=== PATIENT | male | born 1970 | race Caucasian/White ===

== ENCOUNTER 2017-07-17 15:04 | Emergency (ER) | payer MEDICAID ==
[~2017-07-17] VITALS: Ht 165.1 cm; Wt 59.9 kg
[~2017-07-17 15:04] MED LIST: NAPR-56 PO; OTC MOTRIN; PENI500T2 PO
[2017-07-17] MEDS ORDERED: ibuprofen 200mg tablet PO ONE (15:30)
[2017-07-17] MEDS ORDERED: pseudoephedrine 30mg tablet PO ONE (15:30)
[2017-07-17] MEDS ORDERED: benzonatate 100mg capsule PO ONE (15:30)
[2017-07-17] MEDS ORDERED: CefTRIAXone 2gm/NS 100ml IVPB 100 ML IV ONE (16:25)
[2017-07-17] MEDS ORDERED: azithromycin/NS 500mg/250ml 250 ML IV ONE (16:25)
[2017-07-17] MEDS ORDERED: normal saline 1000ML IV soln IVB ONE (16:30)
[2017-07-17 16:53] LABS: BASOPHILS % (AUTO) 0.2 % (0-1); EOSINOPHILS # (AUTO) 0.5 X10'3 (0-0.9); EOSINOPHILS % (AUTO) 3.2 % (0-6); HEMATOCRIT 34.6 % (42.0-52.0); LYMPHOCYTES # (AUTO) 2.2 X10'3 (1.1-4.8); LYMPHOCYTES % (AUTO) 14.2 % (21-51); MEAN CORPUSCULAR HEMOGLOBIN 32.8 PG (27.0-31.0); MEAN CORPUSCULAR HGB CONC 34.6 % (33.0-36.5); MEAN CORPUSCULAR VOLUME 94.8 FL (78-98); MEAN PLATELET VOLUME 7.7 FL (7.4-10.4); MONOCYTES # (AUTO) 0.8 X10'3 (0-0.9); NEUTROPHILS # (AUTO) 11.7 X10'3 (1.8-7.7); NEUTROPHILS % (AUTO) 77.4 % (42-75); PLATELET COUNT 375 X10'3 (140-440); RED BLOOD COUNT 3.65 X10'6 (4.70-6.10); RED CELL DISTRIBUTION WIDTH 14.2 % (11.5-14.5); WHITE BLOOD COUNT 15.2 X10'3 (4.5-11.0)
[2017-07-17 17:21] LABS: ALANINE AMINOTRANSFERASE 58 U/L (12-78); ALBUMIN 2.7 G/DL (3.4-5.0); ALBUMIN/GLOBULIN RATIO 0.6 (1.1-1.5); ALKALINE PHOSPHATASE 86 IU/L (46-116); ANION GAP 7 (8-16); ASPARTATE AMINO TRANSFERASE 86 U/L (10-37); BILIRUBIN,TOTAL 0.3 MG/DL (0.1-1.0); BLOOD UREA NITROGEN 13 MG/DL (7-18); BUN/CREATININE RATIO 16.3 (5.4-32.0); CALCIUM 8.9 MG/DL (8.5-10.1); CHLORIDE 105 MMOL/L (99-107); GLUCOSE 103 MG/DL (70-104); SODIUM 141 MMOL/L (135-145); TOTAL CARBON DIOXIDE 29.2 MMOL/L (24-32); TOTAL PROTEIN 7.1 G/DL (6.4-8.2); eGFR > 90 ML/MIN
[2017-07-17] MEDS ORDERED: AZIT-63 PO (18:31)
[2017-07-17] MEDS ORDERED: BENZ-16 PO (18:31)
[2017-07-17 19:30] VITALS: BP 115/73
== END 2017-07-17 19:32 | disposition home or self-care (01) ==
LOC: ER 15:04
DX: J18.9 Pneumonia, unspecified organism (principal); F17.200 Nicotine dependence, unspecified, uncomplicated; F12.10 Cannabis abuse, uncomplicated; Z59.0 Homelessness; Z56.0 Unemployment, unspecified; Z79.899 Other long term (current) drug therapy
CPT/HCPCS: 36415; 71046; 80053; 83605; 85025; 87040; 93005; 96365; 96367; 99285; J0456; J0696; J7030

== ENCOUNTER 2017-11-06 17:43 | Emergency (ER) | payer SELFPAY ==
[~2017-11-06] VITALS: Ht 167.6 cm; Wt 57.8 kg
[2017-11-06 18:06] VITALS: BP 140/88
[2017-11-06] MEDS: TETanus/Pertussis (Acell)/Diphther VAC/PF (Tdap-Adult) 0.5ml syringe IM ONE ×2 (19:55→19:56)
[2017-11-06 20:10] LABS: ALANINE AMINOTRANSFERASE 25 U/L (12-78); ALBUMIN 3.8 G/DL (3.4-5.0); ALBUMIN/GLOBULIN RATIO 1.2 (1.1-1.5); ALKALINE PHOSPHATASE 89 IU/L (46-116); ANION GAP 5 (8-16); ASPARTATE AMINO TRANSFERASE 16 U/L (10-37); BILIRUBIN,TOTAL 0.3 MG/DL (0.1-1.0); BLOOD UREA NITROGEN 14 MG/DL (7-18); BUN/CREATININE RATIO 14.9 (5.4-32.0); CALCIUM 8.8 MG/DL (8.5-10.1); CHLORIDE 108 MMOL/L (99-107); CREATININE 0.94 MG/DL (0.60-1.10); GLUCOSE 71 MG/DL (70-104); POTASSIUM 3.2 MMOL/L (3.5-5.1); SODIUM 144 MMOL/L (135-145); TOTAL CARBON DIOXIDE 30.6 MMOL/L (24-32); eGFR 87 ML/MIN
[2017-11-06 20:11] LABS: BASOPHILS # (AUTO) 0.1 X10'3 (0-0.2); BASOPHILS % (AUTO) 0.3 % (0-1); EOSINOPHILS # (AUTO) 0.1 X10'3 (0-0.9); EOSINOPHILS % (AUTO) 0.5 % (0-6); HEMATOCRIT 37.1 % (42.0-52.0); HEMOGLOBIN 12.9 g/dl (14.0-17.9); LYMPHOCYTES # (AUTO) 2.5 X10'3 (1.1-4.8); LYMPHOCYTES % (AUTO) 15.9 % (21-51); MEAN CORPUSCULAR HEMOGLOBIN 32.7 PG (27.0-31.0); MEAN CORPUSCULAR HGB CONC 34.7 % (33.0-36.5); MEAN PLATELET VOLUME 8.2 FL (7.4-10.4); MONOCYTES # (AUTO) 1.3 X10'3 (0-0.9); MONOCYTES % (AUTO) 8.5 % (2-12); NEUTROPHILS # (AUTO) 11.9 X10'3 (1.8-7.7); NEUTROPHILS % (AUTO) 74.8 % (42-75); PLATELET COUNT 253 X10'3 (140-440); RED BLOOD COUNT 3.94 X10'6 (4.70-6.10); RED CELL DISTRIBUTION WIDTH 13.7 % (11.5-14.5); WHITE BLOOD COUNT 15.9 X10'3 (4.5-11.0)
== END 2017-11-06 21:34 | disposition left against medical advice (07) ==
LOC: ER 17:44
DX: M70.41 Prepatellar bursitis, right knee (principal); F12.10 Cannabis abuse, uncomplicated; Z59.0 Homelessness; Z56.0 Unemployment, unspecified; Z79.899 Other long term (current) drug therapy; M70.51 Other bursitis of knee, right knee; Y93.89 Activity, other specified
CPT/HCPCS: 36415; 73564; 80053; 85025; 85651; 90715; 99285

== ENCOUNTER 2019-11-05 20:38 | Emergency (ER) | payer SELFPAY | END 2019-11-05 21:12 | disposition left against medical advice (07) | LOC: ER 20:38 | DX: Z53.21 Procedure and treatment not carried out due to patient leaving prior to being seen by health care provider (principal) ==

== ENCOUNTER 2022-06-27 16:24 | Emergency (ER) | payer MEDICAID | END 2022-06-27 20:14 | disposition left against medical advice (07) | LOC: ER 16:26 | DX: R10.9 Unspecified abdominal pain (principal); Z53.21 Procedure and treatment not carried out due to patient leaving prior to being seen by health care provider ==

== ENCOUNTER 2023-01-28 08:25 | Emergency (ER) | payer MEDICAID ==
[~2023-01-28] VITALS: Ht 165.1 cm; Wt 75.0 kg
[2023-01-28 08:27] VITALS: TEMP 98
[2023-01-28 08:40] VITALS: BP 145/99; PULSE 96; RESP 16; O2SAT 99
--- NOTE | 2023-01-28 08:45 | NUR ---
Pt presents with pain in upper right quadrant of mouth. Asking for antibiotics.
[2023-01-28] MEDS ORDERED: ibuprofen tablet 400 MG TABLET PO STA (09:25)
[2023-01-28] MEDS ORDERED: penicillin V potassium 500mg tablet PO STA (09:25)
[2023-01-28] MEDS ORDERED: AMOX-117 PO (09:29)
[2023-01-28] MEDS ORDERED: IBUP-1984 PO (09:30)
[2023-01-28] MEDS ORDERED: CHLO118L3 TOP (09:43)
== END 2023-01-28 09:53 | disposition home or self-care (01) ==
LOC: ER 08:25
DX: K04.7 Periapical abscess without sinus (principal); K02.9 Dental caries, unspecified; F12.90 Cannabis use, unspecified, uncomplicated; Z79.2 Long term (current) use of antibiotics; Z79.1 Long term (current) use of non-steroidal anti-inflammatories (NSAID); Z79.899 Other long term (current) drug therapy
CPT/HCPCS: 99283

== ENCOUNTER 2025-06-06 13:16 | Emergency (ER) | payer MEDICAID ==
[~2025-06-06] VITALS: Ht 167.6 cm; Wt 61.5 kg
[~2025-06-06 13:16] MED LIST changes: +CHLO118L3 TOP; -PENI500T2 PO
[2025-06-06 13:27] VITALS: TEMP 98.7
[2025-06-06] MEDS ORDERED: iohexol 300mg/ml 100ml inj. ONE (15:22)
[2025-06-06 15:45] VITALS: BP 180/116; PULSE 78; RESP 17; O2SAT 99
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
== END 2025-06-06 17:25 | disposition left against medical advice (07) ==
LOC: ER 13:16
DX: R68.84 Jaw pain (principal); F12.90 Cannabis use, unspecified, uncomplicated; Z79.899 Other long term (current) drug therapy; Z59.00 Homelessness unspecified; Z56.0 Unemployment, unspecified; Z72.89 Other problems related to lifestyle
CPT/HCPCS: 70486; 99284; Q9967